=== PATIENT | male | born 1930 | race Caucasian/White ===

== ENCOUNTER 2016-07-11 11:11 | Emergency (ER) | payer OTHER ==
[2016-07-11 11:38] VITALS: BP 189/86
[2016-07-11] MEDS ORDERED: AFRIN ONE (12:14)
[2016-07-11 12:15] LABS: Basophils % (Auto) 0.4 % (0.0-1.8); Eosinophils % (Auto) 0.6 % (0.0-4.3); Hematocrit 28.5 % (35.5-45.6); Mean Corpuscular HGB Conc 32 % (32-34); Mean Corpuscular Volume 71 fl (84-94); Platelet Count 252 K/mm3 (140-440); Red Blood Count 3.99 M/mm3 (3.65-5.03); Red Cell Distribution Width 16.2 % (13.2-15.2); White Blood Count 6.8 K/mm3 (4.5-11.0)
[2016-07-11 12:16] LABS: BUN/Creatinine Ratio 13.88; Chloride 99.8 mmol/L (98-107); Potassium 4.7 mmol/L (3.6-5.0)
[2016-07-11 12:18] LABS: Mean Corpuscular Hemoglobin 23 pg (28-32)
[2016-07-11 12:26] LABS: INR 1.01 (0.87-1.13)
--- NOTE | 2016-07-11 12:29 | Emergency Department Report ---
HPI - General Chief Complaint: Nosebleed Time Seen by Provider: 07/11/16 12:11 - HPI HPI: Room 9 The patient is an 86-year-old male presenting with a chief complaint of epistaxis. The patient states that approximately 10:30 while seated he developed epistaxis from the right naris. Patient denies any preceding trauma. Patient does recall having a recent URI with nasal congestion. Patient states she has nosebleeds frequently. Patient states he is on a blood thinner for his A. fib with not recall the name of medication. Location: Nose Duration: Constant since 10:30 Quality: Painless Severity: Mild Modifying factors: [see above] Context: [see above] Mode of transportation: Unknown ED Past Medical Hx - Past Medical History Previous Medical History?: Yes Hx Hypertension: Yes Hx Heart Attack/AMI: Yes (1996) Hx Diabetes: Yes Additional medical history: afib - Surgical History Past Surgical History?: No - Family History Family history: no significant - Social History Smoking Status: Never Smoker Substance Use Type: None - Medications Home Medications: Home Medications Medication Instructions Recorded Confirmed Last Taken Type Docusate Sodium [Colace] 100 mg PO BID #60 capsule 07/11/16 Unknown Rx Ferrous Sulfate [Feosol 325 MG tab] 325 mg PO TID #90 tablet 07/11/16 Unknown Rx ED Review of Systems ROS: Stated complaint: NOSE BLEED Other details as noted in HPI Comment: All other systems reviewed and negative Constitutional: denies: chills, fever Eyes: denies: eye pain, eye discharge, vision change ENT: epistaxis Respiratory: no symptoms reported Cardiovascular: denies: chest pain, palpitations Endocrine: no symptoms reported Gastrointestinal: denies: abdominal pain, nausea, diarrhea Genitourinary: denies: urgency, dysuria Musculoskeletal: denies: back pain, joint swelling, arthralgia Skin: denies: rash, lesions Neurological: denies: headache, weakness, paresthesias Psychiatric: denies: anxiety, depression Hematological/Lymphatic: denies: easy bleeding, easy bruising Physical Exam - Physical Exam Vital Signs: Vital Signs 07/11/16 07/11/16 07/11/16 11:12 11:14 11:15 Temperature Pulse Rate 106 H 108 H Respiratory 12 17 Rate Blood Pressure 151/73 Blood Pressure [Left] O2 Sat by Pulse 100 99 99 Oximetry 07/11/16 07/11/1617 11:16 11:18 11:20 Temperature Pulse Rate 100 H 99 H 101 H Respiratory 17 23 20 Rate Blood Pressure 151/73 152/77 152/77 Blood Pressure [Left] O2 Sat by Pulse 100 100 100 Oximetry 07/11/16 07/11/16 07/11/16 11:22 11:31 11:38 Temperature 98.8 F Pulse Rate 97 H 91 H Respiratory 17 19 19 Rate Blood Pressure 152/77 Blood Pressure 189/86 [Left] O2 Sat by Pulse 100 100 100 Oximetry Physical Exam: GENERAL: The patient is well-developed well-nourished male sitting on stretcher holding towel to his nose not appearing to be in acute distress. [] HEENT: Normocephalic. Atraumatic. Extraocular motions are intact. Patient has moist mucous membranes. Fresh blood trickling from bilateral nares. No blood in the oropharynx NECK: Supple. Trachea midline CHEST/LUNGS: There is no respiratory distress noted. HEART/CARDIOVASCULAR: Regular. There is no tachycardia. ABDOMEN: There is no abdominal distention. SKIN: There is no rash. There is no edema. There is no diaphoresis. NEURO: The patient is awake, alert, and oriented. The patient is cooperative. The patient has normal speech MUSCULOSKELETAL: There is no evidence of acute injury. ED Course Vital Signs 07/11/16 07/11/16 07/11/16 11:12 11:14 11:15 Temperature Pulse Rate 106 H 108 H Respiratory 12 17 Rate Blood Pressure 151/73 Blood Pressure [Left] O2 Sat by Pulse 100 99 99 Oximetry 07/11/16 07/11/16 07/11/16 11:16 11:18 11:20 Temperature Pulse Rate 100 H 99 H 101 H Respiratory 17 23 20 Rate Blood Pressure 151/73 152/77 152/77 Blood Pressure [Left] O2 Sat by Pulse 100 100 100 Oximetry 07/11/16 07/11/16 07/11/16 11:22 11:31 11:38 Temperature 98.8 F Pulse Rate 97 H 91 H Respiratory 17 19 19 Rate Blood Pressure 152/77 Blood Pressure 189/86 [Left] O2 Sat by Pulse 100 100 100 Oximetry - Reevaluation(s) Reevaluation #1: 07/11/16 13:05 Packing and clamp removed. Patient hemostatic. No epistaxis noted. Patient states he feels great ED Medical Decision Making - Lab Data Result diagrams: 07/11/16 11:42 07/11/16 11:42 Laboratory Tests 07/11/16 07/11/16 07/11/16 11:42 11:42 11:42 WBC 6.8 RBC 3.99 Hgb 9.0 L Hct 28.5 L MCV 71 L MCH 23 L MCHC 32 RDW 16.2 H Plt Count 252 Lymph % (Auto) 20.9 [place] % (Auto) 7.1 Eos % (Auto) 0.6 Baso % (Auto) 0.4 Lymph # 1.4 [place] # 0.5 Eos # 0.0 Baso # 0.0 Seg Neutrophils % 71.0 H Seg Neutrophils # 4.8 PT 13.2 INR 1.01 APTT Sodium 132 L Potassium 4.7 Chloride 99.8 Carbon Dioxide 21 L Anion Gap 16 BUN 25 H Creatinine 1.8 H Estimated GFR 36 BUN/Creatinine Ratio 13.88 Glucose 276 H Calcium 8.0 L 07/11/16 11:42 WBC RBC Hgb Hct MCV MCH MCHC RDW Plt Count Lymph % (Auto) [place] % (Auto) Eos % (Auto) Baso % (Auto) Lymph # [place] # Eos # Baso # Seg Neutrophils % Seg Neutrophils # PT INR APTT 24.7 Sodium Potassium Chloride Carbon Dioxide Anion Gap BUN Creatinine Estimated GFR BUN/Creatinine Ratio Glucose Calcium - Differential Diagnosis epistaxis, coagulopathy Critical care attestation.: If time is entered above; I have spent that time in minutes in the direct care of this critically ill patient, excluding procedure time. ED Disposition Clinical Impression: Epistaxis, Renal insufficiency Disposition: DISCHARGED TO HOME OR SELFCARE Is pt being admited?: No Does the pt Need Aspirin: No Condition: Stable Instructions: Epistaxis (ED) Additional Instructions: Return to the emergency department immediately should you develop worsening symptoms, fever, inability to tolerate food or liquid or any other concerns. Prescriptions: Docusate Sodium [Colace] 100 mg PO BID #60 capsule Ferrous Sulfate [Feosol 325 MG tab] 325 mg PO TID #90 tablet Referrals: PRIMARY CARE, [Primary Care Provider] - 3-5 Days [facility] [Outside] - 3-5 Days LUCAS CARRIZALES MD [Staff Physician] - [facility] (Dr. Carrizales isn't near nose and throat doctor. Please follow up with her or your [facility] for further evaluation) Time of Disposition: 13:07
== END 2016-07-11 13:24 | disposition home or self-care (01) ==
LOC: ED 11:11
DX: R04.0 Epistaxis (principal); N28.9 Disorder of kidney and ureter, unspecified; I10 Essential (primary) hypertension; I25.2 Old myocardial infarction; E11.9 Type 2 diabetes mellitus without complications
CPT/HCPCS: 36415; 80048; 85025; 85610; 85730; 99284